=== PATIENT | male | born 1975 | race African-American/Black ===

== ENCOUNTER 2021-07-18 12:56 | Observation (INO) ==
[2021-07-18] MEDS ORDERED: Acetaminophen 325 MG TABLET PO ONE (13:23)
[2021-07-18] MEDS ORDERED: Naloxone 0.4 MG/ML INJ IVP PRN (14:17)
[2021-07-18] MEDS ORDERED: 0.9 % Sodium Chloride 250 ML IVC SCH (14:30)
[2021-07-18 19:42] VITALS: O2SAT 99
[2021-07-18 23:12] LABS: Hematocrit 23.2 % (37.5-50.1); Hemoglobin 7.5 g/dL (12.9-16.9); Mean Corpuscular HGB Conc 32.3 g/dL (31.6-35.5); Mean Corpuscular Hemoglobin 31.3 pg (28.0-33.3); Mean Corpuscular Volume 96.7 fL (83.0-100.0); Mean Platelet Volume 9.6 fL (9.4-12.4); Platelet Count 186 K/mcL (140-400); Red Cell Distribution Width 14.1 % (11.5-14.5); White Blood Count 2.7 K/mcL (4.3-11.1)
[2021-07-18 23:20] VITALS: BP 104/68; PULSE 76; RESP 20; TEMP 98.3
[2021-07-19] MEDS ORDERED: Acetaminophen 325 MG TABLET PO SCH (19:22)
== END 2021-07-18 23:30 | disposition home or self-care (01) ==
LOC: INPPIK 12:56 → EMEROOPIK 12:56 → INPPIK 15:27
PROVIDERS: ADMIT Internal Medicine; ATTEND Internal Medicine